=== PATIENT | male | born 1945 | race Caucasian/White ===

== ENCOUNTER 2016-12-22 09:57 | Outpatient (CLI) ==
[2014-11-07 13:05] VITALS: BMI 24.4
[2016-12-22 10:11] LABS: HEMATOCRIT 42.2 % (42.0-52.0); MEAN CORPUSCULAR HEMOGLOBIN 32.5 pg (27.0-31.0); MEAN CORPUSCULAR HGB CONC 35.5 (31.8-35.4); MEAN CORPUSCULAR VOLUME 91.3 fl (80.0-94.0); RED BLOOD COUNT 4.62 10^6/ul (4.70-6.10); WHITE BLOOD COUNT 7.2 K/ul (4.2-10.2)
[2016-12-22 10:28] LABS: ANION GAP 12.6; BUN/CREATININE RATIO 25.26; CALCIUM 9.2 mg/dL (8.2-10.2); CREATININE 0.95 mg/dL (0.60-1.10); POTASSIUM 3.6 mmol/L (3.5-5.1)
[2016-12-22 10:35] LABS: PROTHROMBIN TIME 9.7 SEC (9.3-11.0)
[2016-12-22 10:52] LABS: PARTIAL THROMBOPLASTIN TIME 23.3 SEC (23.9-40.0)
== END 2016-12-22 09:58 | disposition home or self-care (01) ==
LOC: LAB 09:57
PROVIDERS: ATTEND Neurological Surgery
DX: Z01.812 Encounter for preprocedural laboratory examination (principal); Z01.818 Encounter for other preprocedural examination
CPT/HCPCS: 36415; 80048; 85027; 85610; 85730

== ENCOUNTER 2017-04-22 08:03 | Emergency (ER) ==
[2017-04-22 08:07] VITALS: BP 134/85; TEMP 98.4; BMI 23.7
--- NOTE | 2017-04-22 08:20 | ED.PDOC ---
General ED Provider: Dr. MARAH POPE Chief Complaint: Bite Stated Complaint: bee sting right hand Time Seen by Physician: 08:10 (wasp sting right dorsal hand) Mode of Arrival: Walk-In Information Source: Patient Exam Limitations: No limitations Primary Care Provider: TREVOR PIERCE Nursing and Triage Documentation Reviewed and Agree: Yes (see photos) Reviewed sepsis parameters & appropriate labs ordered?: Yes System Inflammatory Response Syndrome: Not Applicable Sepsis Protocol: For patient's 13 years and over: Temp is 96.8 and below OR 101 and greater Pulse >90 BPM Resp >20/minute Acutely Altered Mental Status Are patient's symptoms suggestive of a new infection, such as: -Pneumonia -Skin, Soft Tissue -Endocarditis -UTI -Bone, Joint Infection -Implantable Device -Acute Abdominal Infection -Wound Infection -Meningitis -Blood Stream Catheter Infection -Unknown System Inflammatory Response Syndrome: Not Applicable Review of Systems - Review Of Systems Constitutional: Reports: No symptoms Eyes: Reports: No symptoms Ears, Nose, Mouth, Throat: Reports: No symptoms Respiratory: Reports: No symptoms Cardiac: Reports: No symptoms GI: Reports: No symptoms : Reports: No symptoms Musculoskeletal: Reports: No symptoms Skin: Reports: Other (bee sting right hand dorsal) Neurological: Reports: No symptoms Endocrine: Reports: No symptoms Hematologic/Lymphatic: Reports: No symptoms All Other Systems: Reviewed and Negative Past Medical History - Past Medical History Previously Healthy: Yes Endocrine: Reports: None Cardiovascular: Reports: None Respiratory: Reports: None Hematological: Reports: None Gastrointestinal: Reports: None Genitourinary: Reports: None Neuro/Psych: Reports: None Musculoskeletal: Reports: None Cancer: Reports: None - Surgical History General Surgical History: Reports: None - Family History Family History: Reports: None - Social History Smoking Status: Never smoker Hx Substance Use: No Alcohol Screening: Occasionally Physical Exam - Physical Exam Appearance: Well-appearing, No pain distress, Well-nourished Eyes: HELEN, EOMI, Conjunctiva clear ENT: Ears normal, Nose normal, Oropharynx normal Respiratory: Airway patent, Breath sounds clear, Breath sounds equal, Respirations nonlabored Cardiovascular: RRR, Pulses normal, No rub, No murmur GI/: Soft, Nontender, No masses, Bowel sounds normal, No Organomegaly Musculoskeletal: Normal strength, ROM intact, No edema, No calf tenderness Skin: Warm, Dry, Normal color Neurological: Sensation intact, Motor intact, Reflexes intact, Cranial nerves intact, Alert, Oriented Psychiatric: Affect appropriate, Mood appropriate Critical Care Note - Critical Care Note Total Time (mins): 0 Course - Course Vital Signs: Temp Pulse Resp BP Pulse Ox 04/22/17 08:03 98.4 F 63 16 134/85 98 Departure - Departure Time of Disposition: 08:19 Disposition: HOME SELF-CARE Discharge Problem: Sting, wasp Qualifiers: Encounter type: initial encounter Injury intent: undetermined intent Qualified Code(s): T63.464A - Toxic effect of venom of wasps, undetermined, initial encounter Instructions: Insect Bite or Sting (ED) Condition: Good Pt referred to PMD for follow-up: Yes IPMP verified?: No Additional Instructions: Please call your Family Physician as soon as possible to schedule a follow-up appointment. Prescriptions: Prednisone 10 mg PO DAILYWM #3 tablet Allergies/Adverse Reactions: Allergies No Known Allergies Allergy (Verified 04/22/17 08:06) Home Medications: Ambulatory Orders Atorvastatin Calcium [Lipitor] 40 mg PO BEDTIME 08/04/14 Captopril/Hydrochlorothiazide [Captopril-Hctz 50-15 mg Tablet] 1 each PO TID 07/14 Prednisone 10 mg PO DAILYWM #3 tablet 04/22/17
== END 2017-04-22 08:31 | disposition home or self-care (01) ==
LOC: ED 08:03
DX: T63.464A Toxic effect of venom of wasps, undetermined, initial encounter (principal)
CPT/HCPCS: 99283

== ENCOUNTER 2017-05-13 10:23 | Outpatient (CLI) ==
--- NOTE | 2017-05-13 13:21 | DI ---
EXAM: Three views of the cervical spine HISTORY: Neck pain TECHNIQUE: AP lateral, open mouth views of the cervical spine were obtained. FINDINGS: There is straightening of the cervical spine. The prevertebral soft tissues are normal. There is anterior subluxation of C6 on C7 measuring approximately 2.9 mm. There is moderate to sever e loss of disc height seen from the C4 down to the C6 level. There is mild to moderate loss of disc height seen at C6-C7. The odontoid process appears intact. IMPRESSION: Degenerative disc disease and cervical spondylosis seen from the C4 down to the C7 level . Mild degenerative anterolisthesis seen at C6-C7.
== END 2017-05-13 10:24 | disposition home or self-care (01) ==
LOC: RAD 10:23
PROVIDERS: ATTEND Internal Medicine
DX: M54.2 Cervicalgia (principal)